=== PATIENT | male | born 1985 | race Two or more races ===

== ENCOUNTER → 2025-07-11 | Outpatient (CLI) | payer BC, SELFPAY ==
--- NOTE | 2025-07-11 17:00 | XR_ITS ---
Examination: Hand, left 3 views. Technique: Hand AP, oblique, lateral 3 views Date and time of exam: July 11, 2025, 1704 hrs. Indications: Left hand pain beginning 2 years ago. Findings: Mild osteopenia. Mild diffuse narrowing joints of the wrist and hand No erosive arthritis No cortical bone destruction. No opaque foreign bodies. Impression: Mild diffuse narrowing joints of the wrist and hand No erosive arthritis
--- NOTE | 2025-07-11 17:00 | XR_ITS ---
Examination: Wrist, left 3 views Technique: Wrist AP, oblique, lateral 3 views Date and time of exam: July 11, 2025, 1705 hrs. Indications: Left wrist pain 2 years. Findings: Mild narrowing radiocarpal joint. No fracture or dislocation. No avascular necrosis. No erosive arthritis Impression: Mild narrowing radiocarpal joint No erosive arthritis
== END | disposition home or self-care (01) ==
LOC: CDIM 16:56
PROVIDERS: PCP Nurse Practitioner
DX: M25.842 Other specified joint disorders, left hand (principal); M25.832 Other specified joint disorders, left wrist
CPT/HCPCS: 73110; 73130